=== PATIENT | female | born 1955 | race African-American/Black ===

== ENCOUNTER 2017-07-09 09:04 | Emergency (ER) | payer SELFPAY ==
[2017-07-09 09:58] LABS: Hematocrit 44.5 % (36.0-47.0); Mean Platelet Volume 7.6 fL (7.4-10.4); Red Blood Cell (RBC) Count 4.62 mill/uL (4.20-5.40); White Blood Cell (WBC) Count 7.4 thou/uL (4.8-10.8)
[2017-07-09 10:15] LABS: Neutrophil 28 % (42-75); Reactive Lymphocytes 4 % (0-10)
[2017-07-09 10:18] LABS: ALT (SGPT) 23 U/L (8-55); AST (SGOT) 25 U/L (5-34); Alkaline Phosphatase 67 U/L (40-150); Anion Gap 16 mmol/L (10-20); BUN (Urea Nitrogen) 15 mg/dL (9.8-20.1); Bilirubin, Total 0.4 mg/dL (0.2-1.2); Calc. Creatinine Clearance 0 mL/min (70-130); Calcium 10.6 mg/dL (7.8-10.44); Carbon Dioxide 26 mmol/L (23-31); Chloride 102 mmol/L (98-107); Estimated GFR-MDRD 86; Globulin 3.2 g/dL (2.4-3.5)
[2017-07-09 10:36] LABS: Bacteria/HPF None Seen HPF (None Seen); Bilirubin Negative (Negative); Blood, Urine Negative (Negative); Glucose, Urine (Dipstick) Negative (Negative); Hyaline Casts/LPF 0-3 HYALINE CAST LPF (0-3 Hyaline); Ketone, Urine Negative (Negative); Nitrite Negative (Negative); Protein, Urine (Dipstick) Negative (Neg-Trace); Squamous Epithelial 0-3 HPF (0-3); Urobilinogen 0.2 mg/dL (0.2-1.0); WBC/HPF None Seen HPF (0-3)
[2017-07-09] MEDS ORDERED: Ondansetron ODT 8 MG TAB ONE (12:31)
--- NOTE | 2017-07-09 15:04 | CT ---
CT ABDOMEN AND PELVIS WITH IV AND ENTERIC CONTRAST: 07/09/2017 PROVIDED CLINICAL HISTORY: Suprapubic and right lower quadrant pain. FINDINGS: The visualized lung bases are free of significant opacity. The solid abdominal organs demonstrate an unremarkable CT appearance. There are scattered colonic diverticula without CT evidence for diverticulitis. The appendix appears normal. There is no bowel dilatation, inflammatory fat stranding, free fluid, or free air apparent. The osseous structures demonstrate no concerning osteoblastic or osteolytic lesions. IMPRESSION: No evidence for an acute process. POS: SARAH
== END 2017-07-09 15:18 | disposition home or self-care (01) ==
LOC: ERS 09:04
DX: K52.9 Noninfective gastroenteritis and colitis, unspecified (principal); E78.5 Hyperlipidemia, unspecified; I10 Essential (primary) hypertension; F17.210 Nicotine dependence, cigarettes, uncomplicated
CPT/HCPCS: 36415; 74177; 80053; 81003; 85025; 96372

== ENCOUNTER 2019-08-30 11:12 | Outpatient (CLI) | payer MEDICARE, OTHER ==
--- NOTE | 2019-08-31 14:39 | MMO ---
Bilateral MAMMO Bilat Screen [facility]. CLINICAL HISTORY: Patient is 64 years old and is seen for screening. The patient has no family history of breast cancer. The patient has no personal history of cancer. VIEWS: The views performed were: bilateral craniocaudal with tomosynthesis and bilateral mediolateral oblique with tomosynthesis. FILMS COMPARED: The present examination has been compared to prior imaging studies performed at [facility] on 10/30/2009, 11/06/2010, 11/22/2011 and 11/27/2012. This study has been interpreted with the assistance of computer-aided detection. MAMMOGRAM FINDINGS: There are scattered fibroglandular densities. There are no suspicious masses, suspicious calcifications, or new areas of architectural distortion. IMPRESSION: THERE IS NO MAMMOGRAPHIC EVIDENCE OF MALIGNANCY. A ROUTINE FOLLOW-UP MAMMOGRAM IN 1 YEAR IS RECOMMENDED. THE RESULTS OF THIS EXAM WERE SENT TO THE PATIENT. ACR BI-RADS Category 1 - Negative MAMMOGRAPHY NOTE: 1. A negative mammogram report should not delay a biopsy if a dominant of clinically suspicious mass is present. 2. Approximately 10% to 15% of breast cancers are not detected by mammography. 3. Adenosis and dense breasts may obscure an underlying neoplasm. Reported by: DAVID MELO MD Electonically Signed: [id number]
== END 2019-08-30 11:13 | disposition home or self-care (01) ==
LOC: BICMAMMO 11:12
PROVIDERS: ATTEND Physician Assistant
DX: Z12.31 Encounter for screening mammogram for malignant neoplasm of breast (principal)
CPT/HCPCS: 77063; 77067

== ENCOUNTER 2021-04-30 12:19 | Outpatient (CLI) | payer MEDICARE, OTHER | END 2021-04-30 12:20 | disposition home or self-care (01) | LOC: BICMRI 12:19 | PROVIDERS: ATTEND Orthopaedic Surgery | DX: S46.012A Strain of muscle(s) and tendon(s) of the rotator cuff of left shoulder, initial encounter (principal); M71.9 Bursopathy, unspecified; M62.512 Muscle wasting and atrophy, not elsewhere classified, left shoulder ==

== ENCOUNTER 2021-05-16 15:00 | Outpatient (CLI) | payer MEDICARE, OTHER | END 2021-05-16 15:01 | disposition home or self-care (01) | LOC: BICMAMMO 15:00 | PROVIDERS: ATTEND Physician Assistant | DX: Z12.31 Encounter for screening mammogram for malignant neoplasm of breast (principal) | CPT/HCPCS: 77063; 77067 ==

== ENCOUNTER 2023-09-02 08:57 | Outpatient (CLI) | payer MEDICARE, OTHER | END 2023-09-02 08:58 | disposition home or self-care (01) | LOC: BICMAMMO 08:57 | PROVIDERS: ATTEND Physician Assistant | DX: Z12.31 Encounter for screening mammogram for malignant neoplasm of breast (principal) | CPT/HCPCS: 77063; 77067 ==